=== PATIENT | male | born 1960 | race Caucasian/White ===

== ENCOUNTER 2017-05-08 12:35 | Emergency (ER) | payer MEDICAID, OTHER, SELFPAY ==
[2017-05-08] MEDS ORDERED: KETOROLAC 30 MG/ML INJ ONE (13:33)
[2017-05-08 13:35] LABS: Absolute Lymphocytes (CBC) 1.1 K/uL (0.7-4.9); Absolute Monocytes 0.7 K/uL (0.1-1.3); Absolute Neutrophil 9.4 K/uL (1.8-8.0); Basophils % 0.2 % (0-1.3); Lymphocytes % 9.8 % (15.3-44.8); MCH 32.3 pg (27.0-35.0); MCV 96.1 fL (80-100); MPV 9.4 fL (7.6-11.3); Monocytes % 6.4 % (3.3-12.3); RBC Red Blood Cell Count 4.27 M/uL (4.33-5.43)
[2017-05-08 13:37] LABS: Protime INR 1.09
--- NOTE | 2017-05-08 13:37 | RAD REPORT ---
EXAM DESCRIPTION: CT - Head Brain Wo Cont - 05/08/2017 1:26 pm CLINICAL HISTORY: Altered consciousness, and dizziness. COMPARISON: None. TECHNIQUE: All CT scans are performed using dose optimization technique as appropriate and may inclu de automated exposure control or mA/KV adjustment according to patient size. FINDINGS: No intracranial hemorrhage, hydrocephalus or extra-axial fluid collection.No areas of brai n edema or evidence of midline shift. Mild thickening of the left maxillary antrum. The paranasal sinuses and mastoids are otherwise clear. The calvarium is intact. IMPRESSION: No acute intracranial abnormality.
[2017-05-08 13:42] LABS: Bicarbonate 25 mEq/L (21-31); Glucose Level 167 mg/dL (65-120); Potassium 4.9 mEq/L (3.6-5.0); Sodium Level 133 mEq/L (135-145)
--- NOTE | 2017-05-08 13:42 | EKG ---
Test Date: 2017-05-08 Test Time: 12:53:59 Outside Cutter: LISA MEASUREMENT RESULTS: Intervals: Rate: 82 WY: 128 QRSD: 76 QT: 354 QTc: 413 [place]: P: 89 WY: 128 QRS: 78 T: 71 INTERPRETIVE STATEMENTS: Normal sinus rhythm with sinus arrhythmia Possible Left atrial enlargement Borderline ECG Compared to ECG 05/19/2012 11:00:21 No significant changes Electronically Signed On 05-08-17 13:41:27 CDT by Haile Guadalupe
[2017-05-08 13:48] LABS: ALT/SGPT 14 IU/L (10-60); AST/SGOT 22 IU/L (10-42); Alkaline Phosphatase 74 IU/L (42-121); BUN Blood Urea Nitrogen 25 mg/dL (6-20); Bilirubin Direct < 0.1 mg/dL (0-0.2); Glomerular Filtration Rate 57 mL/min (=/>90); Magnesium 1.9 mg/dL (1.8-2.5); Protein, Total 7.4 g/dL (6.0-8.3)
--- NOTE | 2017-05-08 13:49 | RAD REPORT ---
EXAM DESCRIPTION: RAD - Chest Single View - 05/08/2017 1:39 pm CLINICAL HISTORY: Chest pain. COMPARISON: 10/29/2010 FINDINGS: Portable technique limits examination quality. The lungs are grossly clear. The heart is normal in size. No displaced fractures. IMPRESSION: No acute intrathoracic process suspected.
[2017-05-08] MEDS ORDERED: NA CHLORIDE 0.9% 1,000 ML ONE (14:18)
--- NOTE | 2017-05-08 15:51 | ER ---
Nurse's Notes [facility] Name: Derek You Jr Age: 56 yrs Sex: Male : 1960 Arrival Date: 05/08/2017 Time: 12:39 Bed 20 Private MD: Diagnosis: Dizziness and giddiness;Dehydration Presentation: 05/08 12:44 Presenting complaint: EMS states: called out for weakness and numbness that went to em mouth, nose and hands. A\\T\\O 4, pt reports N/dizziness, EMS [id number], hx of sinus arrythmia, pt reports smoking "2 puffs of marijuana and taking muscle relaxers". Transition of care: patient was not received from another setting of care. Onset of symptoms was May 08, 2017. Care prior to arrival: Medication(s) given: Normal saline infusion, 150 mL. 12:44 Method Of Arrival: EMS: [facility] em 12:44 Acuity: DAVID 3 hj Historical: - Allergies: 12:48 No Known Allergies; em - Immunization history:: Adult Immunizations up to date. - Social history:: Smoking status: Patient uses tobacco products, denies chronic smoking, but will smoke occasionally. Screenin:11 Abuse screen: Denies threats or abuse. Nutritional screening: No deficits noted. em Tuberculosis screening: No symptoms or risk factors identified. Fall Risk None identified. Assessment: 12:55 General: Appears uncomfortable, Behavior is calm, cooperative. Pain: Complains of pain em in lumbar area Pain currently is 9 out of 10 on a pain scale. Quality of pain is described as sharp, shooting. Neuro: Level of Consciousness is awake, alert, obeys commands, Oriented to person, place, time, situation, Geothermal Powerplant Mechanic are equal bilaterally Moves all extremities. Speech is normal, Facial symmetry appears normal, Pupils are PERRLA, Reports dizziness, Denies blurred vision headache. Cardiovascular: Denies chest pain, Capillary refill < 3 seconds Patient's skin is warm and dry. Rhythm is sinus arrythmia. Respiratory: Airway is patent Respiratory effort is even, unlabored, Respiratory pattern is regular, symmetrical, Breath sounds are clear bilaterally. GI: Abdomen is round Abd is soft X 4 quads Abdomen is tender to palpation X 4 quads. : No signs and/or symptoms were reported regarding the genitourinary system. EENT: No signs and/or symptoms were reported regarding the EENT system. Derm: Skin is intact, Skin is pink, warm \\T\\ dry. Musculoskeletal: Range of motion:. 12:56 Reassessment: i agree with the assessment of KRZYSZTOF Sanz;. hj 14:02 Reassessment: Patient appears in no apparent distress at this time. Patient and/or em family updated on plan of care and expected duration. Pain level reassessed. Patient is alert, oriented x 3, equal unlabored respirations, skin warm/dry/pink. Patient states feeling better. Patient states symptoms have improved. 15:07 Reassessment: Patient appears in no apparent distress at this time. Patient and/or em family updated on plan of care and expected duration. Pain level reassessed. Patient is alert, oriented x 3, equal unlabored respirations, skin warm/dry/pink. Patient states feeling better. Patient states symptoms have improved. 15:55 Reassessment: Patient appears in no apparent distress at this time. Patient and/or em family updated on plan of care and expected duration. Pain level reassessed. Patient is alert, oriented x 3, equal unlabored respirations, skin warm/dry/pink. Patient states feeling better. Patient states symptoms have improved. Vital Signs: 12:48 BP 131 / 81; Pulse 93; Resp 16; Temp 98.7(O); Pulse Ox 100% on R/A; Weight 68.04 kg; em Height 5 ft. 9 in. (175.26 cm); Pain 9/10; 13:35 BP 156 / 78; Pulse 88; Resp 16; Pulse Ox 99% on R/A; Pain 4/10; em 14:28 BP 153 / 84; Pulse 73; Resp 20; Pulse Ox 100% on R/A; Pain 6/10; em 15:38 BP 176 / 75; Pulse 86; Resp 18; Pulse Ox 99% on R/A; em 12:48 Body Mass Index 22.15 (68.04 kg, 175.26 cm) em ED Course: 12:39 Patient arrived in ED. hj 12:43 Yvon Luna LVN is Primary Nurse. em 12:48 Arm band placed on. em 12:49 Jagjit Gonzales PA is PHCP. jr8 12:49 Lita Dodson MD is Attending Physician. jr8 13:11 Patient has correct armband on for positive identification. Placed in gown. Bed in low em position. Call light in reach. Side rails up X2. 13:11 Maintain EMS IV. Dressing intact. Good blood return noted. Site clean \\T\\ dry. Gauge \\T\\ em site: 18 G RFA. 13:12 EKG done, by cardiac cath technologist. reviewed by Jagjit SOL. tc 13:25 CT completed. Patient tolerated procedure well. Patient moved to CT via stretcher. sj Patient moved back from CT. 13:32 X-ray completed. Patient tolerated procedure well. Patient moved back from radiology. jb2 14:19 Triage completed. hj 14:30 No provider procedures requiring assistance completed. em 16:05 IV discontinued, intact, bleeding controlled, No redness/swelling at site. Pressure em dressing applied. Administered Medications: 13:23 Drug: TORadol 30 mg Route: IVP; Site: right forearm; hj 13:40 Follow up: Response: No adverse reaction; Pain is decreased hj 13:58 Drug: NS 0.9% 1000 ml Route: IV; Rate: 1000 ml; Site: right forearm; hj 15:51 Follow up: IV Status: Completed infusion Point of Care Testing: Blood Glucose: 12:48 Blood Glucose: 140 mg/dL; em Ranges: Outcome: 15:50 Discharge ordered by . jrKatharina 16:05 Discharged to home ambulatory. em 16:05 Condition: good 16:05 Discharge instructions given to patient, Instructed on discharge instructions, follow up and referral plans. Demonstrated understanding of instructions, follow-up care. 16:06 Patient left the ED. em Signatures: Darrell Wilburn jb2 Zora Linder Edgar, LOOP PULLER LOOP PULLER em Jagjit Gonzales PA PA jrHeather Hercules, admissions advisor EKG Ttc Rodrick Ayala, RN RN hj
--- NOTE | 2017-05-08 15:51 | EDPHYS ---
Physician Documentation [facility] Name: Derek You Jr Age: 56 yrs Sex: Male : 1960 Arrival Date: 05/08/2017 Time: 12:39 Bed 20 Private MD: ED Physician Lita Dodson Historical: - Allergies: 05/08 12:48 No Known Allergies; em - Immunization history:: Adult Immunizations up to date. - Social history:: Smoking status: Patient uses tobacco products, denies chronic smoking, but will smoke occasionally. Vital Signs: 12:48 BP 131 / 81; Pulse 93; Resp 16; Temp 98.7(O); Pulse Ox 100% on R/A; Weight 68.04 kg; em Height 5 ft. 9 in. (175.26 cm); Pain 9/10; 13:35 BP 156 / 78; Pulse 88; Resp 16; Pulse Ox 99% on R/A; Pain 4/10; em 14:28 BP 153 / 84; Pulse 73; Resp 20; Pulse Ox 100% on R/A; Pain 6/10; em 15:38 BP 176 / 75; Pulse 86; Resp 18; Pulse Ox 99% on R/A; em 12:48 Body Mass Index 22.15 (68.04 kg, 175.26 cm) em MDM: 12:49 Patient medically screened. [facility] 15:45 Data reviewed: vital signs, nurses notes, lab test result(s), EKG, radiologic studies, [facility] CT scan, plain films, and as a result, I will discharge patient. Data interpreted: Pulse oximetry: on room air is 99 %. Interpretation: normal. Counseling: I had a detailed discussion with the patient and/or guardian regarding: the historical points, exam findings, and any diagnostic results supporting the discharge/admit diagnosis, lab results, radiology results, the need for outpatient follow up, a family practitioner, to return to the emergency department if symptoms worsen or persist or if there are any questions or concerns that arise at home. Response to treatment: the patient's symptoms have resolved after treatment. 05/08 13:07 Order name: Basic Metabolic Panel [facility] 05/08 13:07 Order name: BNP [facility] 05/08 13:07 Order name: CBC with Diff [facility] 05/08 13:07 Order name: LFT's [facility] 05/08 13:07 Order name: Magnesium [facility] 05/08 13:07 Order name: PT-INR [facility] 05/08 13:07 Order name: Troponin (emerg Dept Use Only) [facility] 05/08 13:07 Order name: UDS [facility] 05/08 13:37 Order name: CBC with Automated Diff; Complete Time: 13:44 EDMS 05/08 13:38 Order name: Protime (+INR); Complete Time: 13:44 EDMS 05/08 13:42 Order name: Basic Metabolic Panel; Complete Time: 13:58 EDMS 05/08 13:46 Order name: Troponin (Emerg Dept Use Only); Complete Time: 13:58 EDMS 05/08 13:48 Order name: Liver (Hepatic) Function; Complete Time: 13:58 EDMS 05/08 13:48 Order name: Magnesium; Complete Time: 13:58 EDMS 05/08 13:07 Order name: XRAY Chest (1 view) [facility] 05/08 13:07 Order name: EKG; Complete Time: 13:08 [facility] 05/08 13:07 Order name: Cardiac monitoring; Complete Time: 13:21 [facility] 05/08 13:07 Order name: EKG - Nurse/Tech; Complete Time: 13:21 [facility] 05/08 13:07 Order name: IV Saline Lock; Complete Time: 13:21 [facility] 05/08 13:07 Order name: Labs collected and sent; Complete Time: 13:22 [facility] 05/08 13:07 Order name: O2 Per Protocol; Complete Time: 13:22 [facility] 05/08 13:07 Order name: O2 Sat Monitoring; Complete Time: 13:22 [facility] 05/08 13:07 Order name: CT Head Brain wo Cont 05/08 13:38 Order name: CT; Complete Time: 13:44 EDMS 05/08 13:50 Order name: BNP B-Type Natriuretic Peptide; Complete Time: 13:58 EDMS 05/08 13:50 Order name: RAD; Complete Time: 13:58 EDMS Administered Medications: 13:23 Drug: TORadol 30 mg Route: IVP; Site: right forearm; hj 13:40 Follow up: Response: No adverse reaction; Pain is decreased hj 13:58 Drug: NS 0.9% 1000 ml Route: IV; Rate: 1000 ml; Site: right forearm; hj 15:51 Follow up: IV Status: Completed infusion Point of Care Testing: Blood Glucose: 12:48 Blood Glucose: 140 mg/dL; em Ranges: Critical Glucose Levels:Adult <50 mg/dl or >400 mg/dl <40 mg/dl or >180 mg/dl Disposition: 05/09 07:12 Co-signature as Attending Physician, Lita Dodson MD. ma2 Disposition: 05/08/17 15:50 Discharged to Home. Impression: Dizziness and giddiness, Dehydration. - Condition is Stable. - Discharge Instructions: Dehydration, Adult, Dizziness. - Medication Reconciliation Form, Thank You Letter, Antibiotic Education, Prescription Opioid Use form. - Follow up: Private Physician; When: 1 - 2 days; Reason: Recheck today's complaints, Continuance of care, Re-evaluation by your physician. - Problem is new. - Symptoms have improved. Addendum: 05/16/2017 18:51 Addendum: HPI: Patient stated that while at rest started to have acute onset dizziness. j r8 Stated that he had been on muscle relaxants and had recently smoked marajuana. ROS: Positive for dizziness. Negative for AMS, numbness, tingling, visual disturbance, LOC, Syncope, near syncope, weakness. HEENT; denies eye pain, nasal discharge, hearing loss, ear pain, sore throat. CV; Denies CP. Resp; Denies shortness of breath, cough, sputum, wheezing. Abd; denies n/v/d, abdominal pain. Extremity; denies pain. Skin; denies rash or lesion. Exam: Pupils; TREVIN. Normal EOM. Normal heart rate, rhythm noted. S1, S2 noted with no m/r/g. Breath sounds clear to auscultation bilaterally. Abdomen; soft, nontender. No distension, bruising noted. Extremity; Good muscular tone with full ROM. Pulses equal and 2+ in all extremities. Neuro: GCS 15. No focal neurologic deficits noted. No sensory deficits noted. . Signatures: Dispatcher [employer] EDMS Yvon Luna, WASTEWATER TREATMENT PLANT ATTENDANT WASTEWATER TREATMENT PLANT ATTENDANT Jagjit Skinner PA PA jr8 Joaquin, Henry, RN RN hj Alzahri, Mohammad, MD MD ma2 Corrections: (The following items were deleted from the chart) 03/16 16:02 13:07 Urine Dipstick-Ancillary ordered. jr8 em
== END 2017-05-08 16:06 | disposition home or self-care (01) ==
LOC: ER 12:35
DX: E86.0 Dehydration (principal); Z72.0 Tobacco use
CPT/HCPCS: 36415; 70450; 71045; 80048; 80076; 82962; 83735; 83880; 84484; 85025; 85610; 93005; 96361; 96374; 99285; J7030

== ENCOUNTER 2019-07-31 00:12 | Emergency (ER) | payer SELFPAY ==
[2019-07-31 00:45] LABS: Absolute Lymphocytes (CBC) 1.9 K/uL (0.7-4.9); Basophils % 0.8 % (0-1.3); Hematocrit 42.4 % (39.6-49.0); Lymphocytes % 30.2 % (15.3-44.8); MPV 10.6 fL (7.6-11.3)
[2019-07-31 00:51] LABS: Protime INR 0.92
[2019-07-31 01:02] LABS: Barbiturates NEGATIVE (NEGATIVE); Benzodiazepines NEGATIVE (NEGATIVE); Cocaine NEGATIVE (NEGATIVE); METHAMPHETAM NEGATIVE (NEGATIVE); Methadone NEGATIVE (NEGATIVE); Opiates NEGATIVE (NEGATIVE); Phencyclidine NEGATIVE (NEGATIVE); THC Cannibis NEGATIVE (NEGATIVE)
[2019-07-31 01:08] LABS: ALT/SGPT 24 U/L (12-78); AST/SGOT 25 U/L (15-37); Albumin 3.7 g/dL (3.4-5.0); Alkaline Phosphatase 100 U/L (45-117); BUN Blood Urea Nitrogen 15 mg/dL (7-18); Bicarbonate 25 mmol/L (21-32); Bilirubin Direct < 0.1 mg/dL (0-0.2); Bilirubin Total 0.3 mg/dL (0.2-1.0); Glucose Level 108 mg/dL (74-106); Protein, Total 7.4 g/dL (6.4-8.2); Sodium Level 142 mmol/L (136-145)
[2019-07-31 01:20] LABS: Urine Blood NEGATIVE (NEG); Urine Glucose NEGATIVE (NEG); Urine Protein 3+ (NEG); Urine pH 5.5 (5.0-7.0)
[2019-07-31] MEDS ORDERED: HYDROCODONE/APAP 5/325 MG TAB ONE (10:05)
--- NOTE | 2019-07-31 13:09 | ER ---
Nurse's Notes [facility] Name: Derek You Age: 58 yrs Sex: Male : 1960 Arrival Date: 07/31/2019 Time: 00:19 Bed 7 Private MD: Diagnosis: Alcohol abuse with intoxication;Suicidal ideations-Resolved Presentation: 07/30 00:19 Chief complaint: [place] suicidal jb4 ideations. Pt reports taking 10 10 mg baclofen tablets and two 100 mg trazodone and drinking alcohol. 00:19 Method Of Arrival: EMS: [facility] jb4 00:19 Coronavirus screen: Proceed with normal triage. Ebola Screen: No symptoms or risks jb4 identified at this time. Initial Sepsis Screen: Does the patient meet any 2 criteria? No. Patient's initial sepsis screen is negative. Does the patient have a suspected source of infection? No. Patient's initial sepsis screen is negative. Risk Assessment: Do you want to hurt yourself or someone else? Patient reports desire/thoughts of hurting themselves or someone else. Provider notified. Onset of symptoms was July 31, 2019. Transition of care: patient was not received from another setting of care. 00:19 Acuity: DAVID 2 jb4 Historical: - Allergies: 00:19 No Known Allergies; jb4 - Home Meds: 00:19 baclofen 10 mg Oral tab [Active]; trazodone 100 mg Oral tab [Active]; jb4 - PMHx: 00:19 AAA; Hypertension; Cancer; jb4 - PSHx: 00:19 back surgery; Triple A repair; jb4 - Immunization history:: Adult Immunizations unknown. - Social history:: Smoking status: Patient reports the use of cigarette tobacco products, smokes two packs cigarettes per day. Patient uses alcohol, patient/guardian reports recent binge of alcohol consumption. Patient/guardian denies using street drugs. Screenin:19 Abuse screen: Denies threats or abuse. Nutritional screening: No deficits noted. jb4 Tuberculosis screening: No symptoms or risk factors identified. Fall Risk Mental Status- Overestimates/Forgets Limitations (15 pts.). Total [place] Fall Scale indicates No Risk (0-24 pts). Assessment: 00:19 General: Appears in no apparent distress. uncomfortable, Behavior is calm, cooperative, jb4 appropriate for age. Pain: Complains of pain in anterior aspect of right shoulder Pain does not radiate. Pain currently is 8 out of 10 on a pain scale. Quality of pain is described as stabbing. Neuro: Level of Consciousness is awake, alert, obeys commands, Oriented to person, place, time, situation. Cardiovascular: Patient's skin is warm and dry. Respiratory: Airway is patent Respiratory effort is even, unlabored, Respiratory pattern is regular, symmetrical. GI: No signs and/or symptoms were reported involving the gastrointestinal system. : No signs and/or symptoms were reported regarding the genitourinary system. EENT: No signs and/or symptoms were reported regarding the EENT system. Derm: Skin is pink, warm \T\ dry. Wound noted anterior aspect of right shoulder. Musculoskeletal: Circulation, motion, and sensation intact. Range of motion: intact in all extremities. 00:45 Reassessment: Poison control contacted. Informed nurse to watch for lethargy, jb4 confusion, hallucinations, nausea and vomiting as it could be a sign of mild toxicity to baclofen, and to watch for bradycardia, hypotension, seizures, muscle flaccidity, and coma as a sign of high baclofen toxicity. Informed to watch for TITLE I ASSISTANT depression, hypotension, and bradycardia as signs of Trazodone overdose. Poison control recommends supportive care until patient is back at baseline and Mucomyst for Tylenol level greater than 135. Provider notifed. 03:03 Reassessment: Patient appears in no apparent distress at this time. Patient and/or jb4 family updated on plan of care and expected duration. Pain level reassessed. Pt is resting in bed with eyes closed, respirations are even an unlabored. No s/s of distress noted. 04:00 Reassessment: Patient appears in no apparent distress at this time. No changes from jb4 previously documented assessment. Patient and/or family updated on plan of care and expected duration. Pain level reassessed. 05:00 Reassessment: Patient appears in no apparent distress at this time. No changes from jb4 previously documented assessment. Patient and/or family updated on plan of care and expected duration. Pain level reassessed. 06:00 Reassessment: Patient appears in no apparent distress at this time. Patient and/or jb4 family updated on plan of care and expected duration. Pain level reassessed. Patient is alert, oriented x 3, equal unlabored respirations, skin warm/dry/pink. 07:00 Reassessment: Patient appears in no apparent distress at this time. No changes from ph previously documented assessment. Patient and/or family updated on plan of care and expected duration. Pain level reassessed. Patient is alert, oriented x 3, equal unlabored respirations, skin warm/dry/pink. 08:00 Reassessment: Patient appears in no apparent distress at this time. Patient and/or ph family updated on plan of care and expected duration. Pain level reassessed. Patient is alert, oriented x 3, equal unlabored respirations, skin warm/dry/pink. Awaiting acceptance at psychiatric facility. 09:00 Reassessment: Patient appears in no apparent distress at this time. Patient and/or ph family updated on plan of care and expected duration. Pain level reassessed. Patient is alert, oriented x 3, equal unlabored respirations, skin warm/dry/pink. Pt denies SI or HI at this time, awaiting valuation by [facility] and possible placement at psychiatric facility. 10:00 Reassessment: Patient appears in no apparent distress at this time. Patient and/or ph family updated on plan of care and expected duration. Pain level reassessed. Patient is alert, oriented x 3, equal unlabored respirations, skin warm/dry/pink. 11:00 Reassessment: Patient appears in no apparent distress at this time. Patient and/or ph family updated on plan of care and expected duration. Pain level reassessed. Patient is alert, oriented x 3, equal unlabored respirations, skin warm/dry/pink. 12:39 Reassessment: Patient appears in no apparent distress at this time. Patient and/or ph family updated on plan of care and expected duration. Pain level reassessed. Patient is alert, oriented x 3, equal unlabored respirations, skin warm/dry/pink. Pt speaking w/ [facility] counselor via tablet. 12:56 Reassessment: Spoke w/ Alysa from [facility] who recommends that pt follow up ph outpatient, will set up an appointment for next week. 13:14 Reassessment: Patient appears in no apparent distress at this time. Dr. Noel at em bedside discussing POC. Psych: 00:19 Subjective: Patient's mood is sad. Objective: Patient is cooperative, Speech is normal, jb4 Affect is appropriate. Interventions: Removed personal items and placed in bag. Patient placed in hospital gown. Searched person for dangerous items. Urine collected and sent for urine drug test. Belonging list filled out. Suicide Risk Assessment: Sad Person Scale: Sex of patient: Male: Score 1 point. Age of patient: Score 0 point if patient falls outside of specified age parameters. Depression: Score 1 point if signs of depression are present. Previous Attempt: Score 0 point if patient has not previously attempted suicide. Substance Abuse: Score 1 point if patient abuses alcohol or drugs. Rational Thinking: Score 1 point if patient is lacking rational thinking. Social Support: Score 1 point if social support is lacking and/or unavailable. Organized Plan: Score 1 point if patient had a plan in place. Relationship: Score 1 point if patient is , , , or for a single male Chronic Sickness: Score 1 point if patient has illness, chronic, debilitating, or severe. TOTAL POINTS: If total points are 7-10, the proposed clinical action is to hospitalize or commit. Implement suicide precautions. Safety Checks: Personal items have been removed. Door is open. No visitors are present at this time. Patient uses 48 oz of liquor, Last use was 7pm 07/30/19. Commitment: Patient will be a voluntary commitment. Vital Signs: 00:19 BP 168 / 77; Pulse 75; Resp 16; Temp 97.9; Pulse Ox 99% on R/A; Weight 72.57 kg (R); jb4 Height 5 ft. 8 in. (172.72 cm) (R); Pain 8/10; 01:40 BP 172 / 81; Pulse 73; Resp 16; Pulse Ox 98% on R/A; jb4 04:38 BP 168 / 64; Pulse 73; Resp 16; Pulse Ox 98% on R/A; jb4 05:00 BP 161 / 65; Pulse 73; Resp 16; Pulse Ox 97% on R/A; jb4 06:00 BP 187 / 86; Pulse 63; Resp 16; Pulse Ox 98% on R/A; jb4 11:59 BP 172 / 79; Pulse 63; Resp 17; Temp 98.7; Pulse Ox 100% ; Pain 0/10; ap 00:19 Body Mass Index 24.33 (72.57 kg, 172.72 cm) jb4 ED Course: 00:19 Patient arrived in ED. lp1 00:19 Arm band placed on right wrist. jb4 00:21 Evelio Phipps MD is Attending Physician. mh7 00:32 Rupert Figueroa, ABHISHEK is Primary Nurse. rv 00:54 Ori Aranda, RN is Primary Nurse. jb4 01:04 Triage completed. jb4 07:20 Attending Physician role handed off by Evelio Phipps MD rn 07:20 Demetrio Noel MD is Attending Physician. rn 07:46 called the [facility] crisis hotline to page the screener metal control coordinator for patient eb evaluation. 08:35 Diet: Patient given a regular meal tray. 3 09:45 called the crisis line for [facility] again to check on the status of the screener/ per eb Lisseth the retail shift supervisor gave the information to the on coming screener and it shouldn't be much longer before someone calls us back. 12:39 connected the [facility] Screener Crystal on the patient IPAD via [employer] with patient eb for evaluation. 13:26 IV discontinued, intact, bleeding controlled, No redness/swelling at site. Pressure em dressing applied. 13:27 No provider procedures requiring assistance completed. em Administered Medications: 10:16 Drug: [place] 5 mg-325 mg 1 tabs Route: PO; ph Outcome: 13:09 Discharge ordered by MD. rn 13:26 Discharged to home ambulatory, with family. em 13:26 Condition: good 13:26 Discharge instructions given to patient, Instructed on discharge instructions, follow up and referral plans. Demonstrated understanding of instructions, follow-up care. 13:27 Patient left the ED. em Signatures: Yvon Luna, RN RN em Demetrio Noel MD MD rn Pena, Laura, RN RN lp1 Gayle Gorman RN RN ph Gerard, Ori Rahman, ABHISHEK RN [facility] Angelique Dolan [facility] Janet Bernstein Ronaldo, ABHISHEK WEISS rv Evelio Phipps MD MD [facility] Corrections: (The following items were deleted from the chart) 12:58 09:00 Reassessment: Patient appears in no apparent distress at this time. Patient ph and/or family updated on plan of care and expected duration. Pain level reassessed. Patient is alert, oriented x 3, equal unlabored respirations, skin warm/dry/pink. ph
--- NOTE | 2019-07-31 13:10 | EDPHYS ---
Physician Documentation [facility] Name: Derek You Age: 58 yrs Sex: Male : 1960 Arrival Date: 07/31/2019 Time: 00:19 Bed 7 Private MD: ED Physician Demetrio Noel HPI: 07/30 00:29 This 58 yrs old Male presents to ER via Unassigned with complaints of Drug Ingestion. mh7 00:29 The patient presents to the emergency department with depression, over unknown mh7 circumstances, a history of a suicide gesture, where the patient took pills/medications, Baclofen, Trazadone, suicide ideation, and the patient has a plan, to overdose with medications. Onset: The symptoms/episode began/occurred today, 5 hour(s) ago. Past psychiatric history: Prior diagnosis: depression, Psychiatric medications include: Trazadone, Primary psychiatric physician: the patient does not have a primary psychiatric physician, the patient has not had a prior suicide gesture, the patient does not have a previous inpatient psychiatric history, the patient's last psychiatric treatment was none. Associated signs and symptoms: Pertinent positives; depression, suicide ideation, Pertinent negatives: abdominal pain, anxiety, chest pain, chills, delusions, fever, hallucinations, headache, homicidal ideation, nausea, night sweats, palpitations, paranoia, shortness of breath, substance abuse, tremor, vomiting. Historical: - Allergies: 00:19 No Known Allergies; jb4 - Home Meds: 00:19 baclofen 10 mg Oral tab [Active]; trazodone 100 mg Oral tab [Active]; jb4 - PMHx: 00:19 AAA; Hypertension; Cancer; jb4 - PSHx: 00:19 back surgery; Triple A repair; jb4 - Immunization history:: Adult Immunizations unknown. - Social history:: Smoking status: Patient reports the use of cigarette tobacco products, smokes two packs cigarettes per day. Patient uses alcohol, patient/guardian reports recent binge of alcohol consumption. Patient/guardian denies using street drugs. ROS: 00:29 Constitutional: Negative for fever, chills, and weight loss, Eyes: Negative for injury, mh7 pain, redness, and discharge, ENT: Negative for injury, pain, and discharge, Neck: Negative for injury, pain, and swelling, Cardiovascular: Negative for chest pain, palpitations, and edema, Respiratory: Negative for shortness of breath, cough, wheezing, and pleuritic chest pain, Abdomen/GI: Negative for abdominal pain, nausea, vomiting, diarrhea, and constipation, Back: Negative for injury and pain, : Negative for injury, bleeding, discharge, and swelling, MS/Extremity: Negative for injury and deformity, Skin: Negative for injury, rash, and discoloration, Neuro: Negative for headache, weakness, numbness, tingling, and seizure, Allergy/Immunology: Negative for hives, rash, and allergies, Endocrine: Negative for neck swelling, polydipsia, polyuria, polyphagia, and marked weight changes, Hematologic/Lymphatic: Negative for swollen nodes, abnormal bleeding, and unusual bruising. Exam: 00:29 Constitutional: This is a well developed, well nourished patient who is awake, alert, mh7 and in no acute distress. Head/Face: Normocephalic, atraumatic. Eyes: Pupils equal round and reactive to light, extra-ocular motions intact. Lids and lashes normal. Conjunctiva and sclera are non-icteric and not injected. Cornea within normal limits. Periorbital areas with no swelling, redness, or edema. ENT: Nares patent. No nasal discharge, no septal abnormalities noted. Tympanic membranes are normal and external auditory canals are clear. Oropharynx with no redness, swelling, or masses, exudates, or evidence of obstruction, uvula midline. Mucous membranes moist. Neck: Trachea midline, no thyromegaly or masses palpated, and no cervical lymphadenopathy. Supple, full range of motion without nuchal rigidity, or vertebral point tenderness. No Meningismus. Chest/axilla: Normal chest wall appearance and motion. Nontender with no deformity. No lesions are appreciated. Cardiovascular: Regular rate and rhythm with a normal S1 and S2. No gallops, murmurs, or rubs. Normal PMI, no JVD. No pulse deficits. Respiratory: Lungs have equal breath sounds bilaterally, clear to auscultation and percussion. No rales, rhonchi or wheezes noted. No increased work of breathing, no retractions or nasal flaring. Abdomen/GI: Soft, non-tender, with normal bowel sounds. No distension or tympany. No guarding or rebound. No evidence of tenderness throughout. Back: No spinal tenderness. No costovertebral tenderness. Full range of motion. Skin: Warm, dry with normal turgor. Normal color with no rashes, no lesions, and no evidence of cellulitis. MS/ Extremity: Pulses equal, no cyanosis. Neurovascular intact. Full, normal range of motion. Neuro: Awake and alert, GCS 15, oriented to person, place, time, and situation. Cranial nerves II-XII grossly intact. Motor strength 5/5 in all extremities. Sensory grossly intact. Cerebellar exam normal. Normal gait. 00:29 Psych: Behavior/mood is cooperative, depressed, Affect is calm, Oriented to person, place, time, Patient having thoughts of suicide. Plan for suicide is take pills Judgement / Insight is impaired. Memory is normal. Delusions/hallucinations are not present. 04:11 ECG was reviewed by the Attending Physician. [facility] Vital Signs: 00:19 BP 168 / 77; Pulse 75; Resp 16; Temp 97.9; Pulse Ox 99% on R/A; Weight 72.57 kg (R); jb4 Height 5 ft. 8 in. (172.72 cm) (R); Pain 8/10; 01:40 BP 172 / 81; Pulse 73; Resp 16; Pulse Ox 98% on R/A; jb4 04:38 BP 168 / 64; Pulse 73; Resp 16; Pulse Ox 98% on R/A; jb4 05:00 BP 161 / 65; Pulse 73; Resp 16; Pulse Ox 97% on R/A; jb4 06:00 BP 187 / 86; Pulse 63; Resp 16; Pulse Ox 98% on R/A; jb4 11:59 BP 172 / 79; Pulse 63; Resp 17; Temp 98.7; Pulse Ox 100% ; Pain 0/10; ap 00:19 Body Mass Index 24.33 (72.57 kg, 172.72 cm) [facility] [place] MDM: 00:22 Patient medically screened. [facility] 04:12 Differential diagnosis: drug withdrawal. depression, Alcohol intoxication, Substance [facility] abuse. Data reviewed: vital signs, nurses notes, EMS record, lab test result(s), CBC, drug level(s), electrolytes, urinalysis, EKG. Data interpreted: court recording monitor: rate is 75 beats/min, rhythm is normal sinus rhythm, regular, Interpretation: normal rate, normal rhythm, Pulse oximetry: on room air is 99 %. Interpretation: normal. 07:20 ED course: Pt signed out ot me at shift change, pending psychiatric transfer for rn suicidal ideation, is voluntary, sober now, calm and sleeping comfortably. . 07:46 ED course: Pt now denies suicidal ideations, states wants to go home, does not want to rn be transferred to see psychiatrist, has never done anything like this before, states told him to leave last night, has been for 38 years, was drinking, and was thinking right. Is now sober and denies current suicidal or homicidal thoughts. . 09:28 ED course: Still waiting for [facility] mental health evaluation given patient rn currently denies suicidal thoughts. . 13:07 Counseling: I had a detailed discussion with the patient and/or guardian regarding: the rn historical points, exam findings, and any diagnostic results supporting the discharge/admit diagnosis, lab results, the need for outpatient follow up, to return to the emergency department if symptoms worsen or persist or if there are any questions or concerns that arise at home. Response to treatment: the patient's symptoms have markedly improved after treatment, and as a result, I will discharge patient. ED course: [facility] evaluated patient, they determined patient safe for discharge home, patient thankful and again denies suicidal thoughts at this time. Will dc home with return precautions. . 07/30 00:22 Order name: Acetaminophen [facility] 07/30 00:22 Order name: Basic Metabolic Panel [facility] 07/30 00:22 Order name: CBC with Diff 07/30 00:22 Order name: ETOH Level; Complete Time: 02: [facility] 07/30 00:22 Order name: Hepatic Function; Complete Time: : [facility] 07/30 00:22 Order name: PT-INR; Complete Time: : [facility] 07/30 00:22 Order name: Ptt, Activated; Complete Time: : [facility] 07/30 00:22 Order name: Salicylate; Complete Time: : [facility] 07/30 00:22 Order name: Urine Drug Screen; Complete Time: 02:58 [facility] 07/30 00:23 Order name: Acetaminophen Level; Complete Time: 02:58 [facility] 07/30 00:23 Order name: Basic Metabolic Panel; Complete Time: 02:58 [facility] 07/30 00:23 Order name: CBC with Automated Diff; Complete Time: 02:58 [facility] 07/30 01:01 Order name: Urine Dipstick--Ancillary (enter results); Complete Time: 02:58 2 07/30 09:53 Order name: ETOH Level ph 07/30 00:22 Order name: EKG; Complete Time: 00:24 [facility] 07/30 00:22 Order name: EKG - Nurse/Tech; Complete Time: 01:01 [facility] 07/30 00:22 Order name: IV Saline Lock; Complete Time: 00:51 [facility] 07/30 00:22 Order name: Labs collected and sent; Complete Time: 00:51 [facility] 07/30 00:22 Order name: Urine Dipstick-Ancillary (obtain specimen); Complete Time: 00:51 [facility] 07/30 07:23 Order name: Diet Finger Food; Complete Time: 07:23 dh3 EC:11 Rate is 65 beats/min. Rhythm is regular, Normal Sinus Rhythm. QRS [place] is Normal. [place] mh7 interval is normal. QRS interval is normal. QT interval is normal. No Q waves. T waves are Normal. No ST changes noted. Clinical impression: NSR w/ Non-specific ST/T Changes and LVH. Administered Medications: 10:16 Drug: [place] 5 mg-325 mg 1 tabs Route: PO; ph Disposition: 07/31/19 13:09 Discharged to Home. Impression: Alcohol abuse with intoxication, Suicidal ideations - Resolved. - Condition is Stable. - Discharge Instructions: Alcohol Intoxication, Suicidal Feelings: How to Help Yourself, Stress and Stress Management. - Medication Reconciliation Form, Thank You Letter, Antibiotic Education, Prescription Opioid Use form. - Follow up: Private Physician; When: As needed; Reason: Recheck today's complaints, Re-evaluation by your physician. - Problem is new. - Symptoms have improved. Signatures: Dispatcher [employer] Yvon Baker RN RN em Demetrio Noel MD MD rn Hall, Patricia, RN RN Ori Aranda RN RN jb4 Evelio Phipps MD MD 7 Corrections: (The following items were deleted from the chart) 13:27 13:09 07/31/2019 13:09 Discharged to Home. Impression: Alcohol abuse with intoxication; em Suicidal ideations - Resolved. Condition is Stable. Forms are Medication Reconciliation Form, Thank You Letter, Antibiotic Education, Prescription Opioid Use. Follow up: Private Physician; When: As needed; Reason: Recheck today's complaints, Re-evaluation by your physician. Problem is new. Symptoms have improved. rn
[2019-07-31 13:42] VITALS: BP 172/79; TEMP 98.7; O2SAT 100
--- NOTE | 2019-08-01 07:47 | EKG ---
Test Date: 2019-07-31 Test Time: 00:58:17 Press Tool Maker: RV MEASUREMENT RESULTS: Intervals: Rate: 65 MA: 134 QRSD: 98 QT: 414 QTc: 430 [place]: P: 84 MA: 134 QRS: 46 T: 38 INTERPRETIVE STATEMENTS: Normal sinus rhythm Possible Left atrial enlargement Left ventricular hypertrophy Nonspecific T wave abnormality Abnormal ECG No previous ECG available for comparison Electronically Signed On 08-01-19 07:44:46 CDT by Jann Garsia
== END 2019-07-31 13:27 | disposition home or self-care (01) ==
LOC: ER 00:12 → MERGE 00:12 → ER 13:27
DX: F10.129 Alcohol abuse with intoxication, unspecified (principal); I10 Essential (primary) hypertension; F17.210 Nicotine dependence, cigarettes, uncomplicated
CPT/HCPCS: 36415; 80048; 80076; 80307; 80320; 80329; 81003; 85025; 85610; 85730; 93005; 99284